=== PATIENT | male | born 1990 | race African-American/Black ===

== ENCOUNTER 2021-04-05 09:39 | Emergency (ER) | payer OTHER ==
[~2021-04-05] VITALS: Ht 180.3 cm; Wt 96.8 kg
[2021-04-05 10:27] LABS: HEMATOCRIT 47.7 % (42.0-52.0); HEMOGLOBIN 15.3 g/dl (13.5-17.5); MEAN CORPUSCULAR HEMOGLOBIN 26.3 pg (27.0-33.0); MEAN CORPUSCULAR HGB CONC 32.1 g/dl (32.0-36.5); MEAN CORPUSCULAR VOLUME 82.1 fl (80.0-96.0); PLATELET COUNT, AUTOMATED 154 10^3/uL (150-450); RED BLOOD COUNT 5.81 10^6/uL (4.30-6.10); WHITE BLOOD COUNT 5.7 10^3/uL (4.0-10.0)
[2021-04-05] MEDS ORDERED: KEPP750T3 PO ×2 (10:43→11:32)
[2021-04-05 10:56] LABS: BLOOD UREA NITROGEN 14 MG/DL (7-18); CALCIUM LEVEL 8.7 MG/DL (8.5-10.1); CARBON DIOXIDE LEVEL 24 MEQ/L (21-32); CHLORIDE LEVEL 110 MEQ/L (98-107); CREATININE FOR GFR 1.25 MG/DL (0.70-1.30); GLOMERULAR FILTRATION RATE > 60.0 (>60); GLUCOSE, FASTING 112 MG/DL (70-100); POTASSIUM SERUM 3.8 MEQ/L (3.5-5.1); SODIUM LEVEL 140 MEQ/L (136-145)
[2021-04-05 11:45] VITALS: BP 124/66
== END 2021-04-05 12:02 | disposition home or self-care (01) ==
LOC: M ED 09:39 → EDBD 09:39 → M ED 12:02
DX: G40.909 Epilepsy, unspecified, not intractable, without status epilepticus (principal)